=== PATIENT | male | born 1945 | race Caucasian/White ===

== ENCOUNTER 2020-05-22 11:51 | Emergency (ER) | payer OTHER, SELFPAY ==
[2020-05-22 11:58] VITALS: BP 121/84; PULSE 78; RESP 26; TEMP 36.7; BMI 41.7
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
[2020-05-22] MEDS: Diphth,Pertuss(Acell),Tet Vac 0.5 ML Vial IM (12:45)
[2020-05-22 15:44] VITALS: BP 132/66; PULSE 70; RESP 24
[2020-05-22 17:25] VITALS: RESP 18
== END 2020-05-22 17:35 | disposition home or self-care (01) ==
PROVIDERS: Emergency Provider Emergency Medicine
DX: S01.01XA Laceration without foreign body of scalp, initial encounter (principal); S01.81XA Laceration without foreign body of other part of head, initial encounter; V57.5XXA Driver of pick-up truck or van injured in collision with fixed or stationary object in traffic accident, initial encounter; Y93.89 Activity, other specified; Y92.828 Other wilderness area as the place of occurrence of the external cause; Y99.9 Unspecified external cause status; F17.200 Nicotine dependence, unspecified, uncomplicated; Z88.0 Allergy status to penicillin; Z23 Encounter for immunization
CPT/HCPCS: 12001; 70450; 70486; 72125; 90471; 90715; 99284

== ENCOUNTER 2020-07-15 20:28 | Emergency (ER) | payer OTHER, SELFPAY ==
[2020-07-15] VITALS (11 sets, daily range): BP systolic 104–158; BP diastolic 57–79; PULSE 62–95; RESP 15–20; TEMP 36.2–36.5; O2SAT 91–100; BMI 40.1
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
--- NOTE | 2020-07-15 20:36 | EKG12_ITS ---
Test Reason : ALT MENTAL Blood Pressure : / mmHG Vent. Rate : 080 BPM Atrial Rate : 080 BPM P-R Int : 144 ms QRS Dur : 086 ms QT Int : 386 ms P-R-T Axes : 040 000 013 degrees QTc Int : 445 ms Sinus rhythm with Premature atrial complexes Inferior infarct , age undetermined Abnormal ECG Confirmed by LAUREN GROVES, MARIA DOLORES ([id number]), editor & co founder OSCAR GRACE ([id number]) on 07/23/2020 10:12:04 AM Referred By: LEAH Confirmed By:HERBERT AGUILAR MD
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
--- NOTE | 2020-07-15 20:44 | ED.RN ---
NO OLD EKGS IN MUSE
[2020-07-15] MEDS: 0.9% Normal Saline 1,000 ML 1000 ML IV (20:46)
[2020-07-15 20:53] LABS: Absolute Lymphocyte Count 0.91 X10^3/uL (0.83-4.51); Absolute Neutrophil Count 10.9 X10^3/uL (2.0-7.7); Basophil# 0.08 X10^3/uL; Basophil% 0.6 % (0-1); Eosinophil# 0.19 X10^3/uL; Eosinophils% 1.4 % (0-5); Hematocrit 42.3 % (40-54); Hemoglobin 14.5 g/dL (13.0-16.5); Lymphocyte # 0.91 X10^3/ul (4.0); Lymphocyte % 6.8 % (19-41); Mean Corp Hgb Conc 34.3 g/dL (32-36); Mean Corpuscular Hgb 33.3 pg (27.0-32.0); Mean Platelet Vol. 10.9 fl (6.2-12.0); Monocyte# 1.17 X10^3/uL; Monocyte% 8.8 % (0-10); NRBC Flagged by Analyzer 0 % (0-5); Neutrophil # 10.88 X10^3/uL (2.7-7.7); Neutrophil % 81.9 % (47-70); Platelet Count 315 K/mm3 (150-450); RBC Distribution Width CV 12.4 % (11.6-14.6); RBC Distribution Width SD 44.3 fl (35.1-43.9); Red Blood Count 4.36 M/mm3 (4.6-6.2); White Blood Count 13.3 K/mm3 (4.4-11.0)
--- NOTE | 2020-07-15 21:02 | ED.RN ---
18 coude used to insert lopez.
[2020-07-15 21:06] LABS: International Normalized Ratio 1.2; Prothrombin Time (Protime)PT. 14.4 SECONDS (11.7-14.9)
[2020-07-15 21:09] LABS: Mucous, Urine 0 SEEN /hpf (<or=2+); Red Blood Cells-Urine 0 SEEN /hpf (0-5); Squamous Epithelial Cells - UA 0 SEEN /hpf (0-5); White Blood Cells 0 SEEN /hpf (0-5)
[2020-07-15 21:10] LABS: Color, Urine Amber (Yellow); Glucose, Dipstick Normal (Normal); Leukocyte Esterase-Dipstick 25 /ul (Negative); Nitrite-Dipstick Positive (Negative); Occult Blood-Urine 10 /ul (Negative); Protein-Dipstick 30 mg/dl (Negative); Specific Gravity, Urine 1.025 (1.002-1.030); Urine Clarity Clear (Clear); Urine Urobilinogen 8 mg/dl (Normal)
[2020-07-15 21:12] LABS: AST(SGOT) 108 U/L (15-37); Alanine Aminotransfer ALT/SGPT 58 U/L (16-61); Albumin, Serum 3.9 g/dL (3.2-5.0); Alkaline Phosphatase 128 U/L (45-117); Anion Gap 11 (5-15); BUN 46 mg/dL (7-18); BUN/Creat Ratio 44.7 RATIO (10-20); Bilirubin, Direct 0.63 mg/dL (0.00-0.30); Calcium,Total 9.1 mg/dL (8.5-10.1); Chloride 110 mmol/L (98-107); Creatinine, Serum 1.03 mg/dL (0.70-1.30); EST Glomerular Filtration Rate 75 mL/min (>60); Est Glom Filt Rate - Afr Amer 91 mL/min (>60); Estimated Creatinine Clearance 58.83 ml/min; Globulin 3.5 g/dL (2.2-4.2); Glucose 121 mg/dL (74-106); Potassium 3.7 mmol/L (3.5-5.1); Protein, Total 7.4 g/dL (6.4-8.2); Sodium Level 145 mmol/L (136-145)
--- NOTE | 2020-07-15 21:13 | RAD_ITS ---
STUDY: X-RAY CHEST REASON FOR EXAM: Male, 75 years old. Pt was last seen yesterday. Found today on kitchen floor. TECHNIQUE: Single AP portable view of the chest. COMPARISON: March 17, 2015 FINDINGS: The lungs are clear and expanded. There is no demonstrated pleural abnormality. Normal size heart. Normal mediastinum and marianne. Normal visualized pulmonary arteries. Normal visualized aortic arch and descending thoracic aorta. There are diffuse degenerative changes of the visualized thoracic spine. Normal visualized ribs, clavicles, and shoulders. There is no demonstrated abnormality of the visualized soft tissue structures of the upper abdomen. RAD/Chest 1 View (Portable) IMPRESSION: Degenerative changes, as described above. No demonstrated acute cardiopulmonary process. Electronically Signed: Surendra Ratliff MD at 21:59 EST , Service support ,
[2020-07-15 21:15] LABS: Ketone-Dipstick 150 mg/dl (Negative); Urine Bilirubin Dipstick 3 mg/dL (Negative)
[2020-07-15 21:16] LABS: Allen Test Positive; Base Excess -4 mmol/L (-2 to +2); Bicarbonate 20.5 mmol/L (22-26); Blood Gas Specimen Type ART; O2 Delivery Device Room Air; PO2 89 mmHG (75-100); SITE L Radial; SO2 97 % (95-99); Total Carbon Dioxide 22 mmol/L; pCO2 33.5 mmHg (35-45)
[2020-07-15 21:21] LABS: Bacteria 1+ /hpf (None Seen)
[2020-07-15 21:22] LABS: Lactic Acid 2.6 mmol/L (0.4-1.9)
[2020-07-15 21:23] LABS: Amphetamine Urine VISTA NEGATIVE (<1000 ng/mL); Barbiturate Urine VISTA NEGATIVE (< 200 ng/mL); Benzodiazepine Urine VISTA NEGATIVE (< 200 ng/mL); Cocaine Urine VISTA NEGATIVE (< 300 ng/mL); Ecstacy Urine VISTA NEGATIVE (< 500 ng/mL); Methadone Urine VISTA NEGATIVE (< 300 ng/mL); PCP Urine VISTA NEGATIVE (< 25 ng/mL); THC Urine VISTA NEGATIVE (< 50 ng/mL); Vista UDS pH Range 5
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
[2020-07-15 21:27] LABS: CPK Total, Creatine Kinase 1386 U/L (39-308)
--- NOTE | 2020-07-15 21:28 | ED.RN ---
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
[2020-07-15] MEDS: Ceftriaxone 1 GM/50 ML BAG IV (21:30)
[2020-07-15] MEDS: Sodium Chloride 3% 500 ML 999 ML IV (22:03)
--- NOTE | 2020-07-15 22:08 | ED.RN ---
CALL BACK TO RAVINDRA ZAVALA TO ADVISE THAT THIS PT WILL BE TRANSFERRED TO [facility]. UNABLE TO LEAVE A MESSAGE THIS TIME.
[2020-07-15] MEDS: Labetalol 100 MG/20 ML Vial 20 MG IV (22:25)
[2020-07-15 22:36] LABS: Bedside Glucose 114 mg/dL (70-110)
[2020-07-16 00:48] LABS: Reflex Lactate? Y
--- NOTE | 2020-07-16 11:55 | CM.ED ---
SOCIAL WORK Received call from Marion Pina with [facility] for update on patient. For continuity of care, Marion updated patient was transferred to [facility]. Marion to follow up with [place]. Conrad Feliz, MATERIALS SUPERVISOR, FLEET OPERATIONS MANAGER
== END 2020-07-15 23:08 | disposition short-term general hospital (02) ==
LOC: ED 21:22
PROVIDERS: Emergency Provider Emergency Medicine
DX: I62.03 Nontraumatic chronic subdural hemorrhage (principal); N39.0 Urinary tract infection, site not specified
CPT/HCPCS: 36600; 51702; 70450; 71045; 80048; 80076; 80307; 80320; 81001; 82550; 82803; 82962; 83605; 84484; 85025; 85610; 87426; 93005; 96361; 96365; 96375; 99285; A4216; G0480

== ENCOUNTER 2024-09-25 15:23 | Emergency (ER) | payer OTHER, SELFPAY ==
[2024-09-25 15:25] VITALS: BP 145/60; PULSE 60; RESP 16; TEMP 36.8; O2SAT 100
--- NOTE | 2024-09-25 16:27 | CT_ITS ---
EXAM: BRAIN/HEAD WITHOUT CONTRAST CLINICAL HISTORY: Head injury COMPARISON: 07/15/2020 TECHNIQUE: Noncontrast images of the head with multiplanar reconstructions. Dose reduction techniques were used including intermediate exposure control (AEC),iterative reconstruction technique, and/or mA and/or KV dose adjustments based on patient's size. FINDINGS: CT HEAD FINDINGS: No acute intracranial hemorrhage, mass, mass effect, midline shift or pathologic extra-axial fluid collection. Nonspecific periventricular white matter changes are noted. Chronic hypodense crescentic density is noted in the bilateral frontal regions. No hydrocephalus. Age- appropriate cerebral volume and white matter. Visualized paranasal sinuses and mastoid air cells are clear. The calvarium is grossly intact. CT/Brain/Head without Contrast IMPRESSION: 1. No acute intracranial abnormality. 2. Age-appropriate volume loss and remote small vessel ischemic changes. 3. Chronic bifrontal subdural hematomas Reading Location: [facility]
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
--- NOTE | 2024-09-25 17:09 | ED.RN ---
Patient prompted for urine sample and given urinal.
[2024-09-25 17:27] LABS: Absolute Lymphocyte Count 1.06 X10^3/uL (0.83-4.51); Absolute Neutrophil Count 5.1 X10^3/uL (2.0-7.7); Basophil# 0.03 X10^3/uL; Basophil% 0.4 % (0-1); Eosinophil# 0.02 X10^3/uL; Eosinophils% 0.3 % (0-5); Hematocrit 37.1 % (40-54); Hemoglobin 12.4 g/dL (13.0-16.5); Lymphocyte # 1.06 X10^3/ul (0.83-4.51); Lymphocyte % 15.8 % (19-41); Mean Corp Hgb Conc 33.4 g/dL (32-36); Mean Corpuscular Hgb 32.8 pg (27.0-32.0); Mean Corpuscular Volume 98.1 fL (80-94); Mean Platelet Vol. 10.2 fl (6.2-12.0); Monocyte% 7.4 % (0-10); NRBC Flagged by Analyzer 0 % (0-5); Neutrophil # 5.11 X10^3/uL (2.7-7.7); Platelet Count 221 K/mm3 (150-450); RBC Distribution Width SD 43.7 fl (35.1-43.9); Red Blood Count 3.78 M/mm3 (4.6-6.2); White Blood Count 6.7 K/mm3 (4.4-11.0)
[2024-09-25 17:35] LABS: Anion Gap 11 (5-15); BUN 19 mg/dL (4-19); BUN/Creat Ratio 22.9 RATIO (10-20); Calcium 9.1 mg/dL (7.6-11.0); Carbon Dioxide 23.2 mmol/L (22.0-29.0); Chloride 106 mmol/L (96-108); Creatinine, Serum 0.8 mg/dL (0.8-1.3); EST Glomerular Filtration Rate 89 (>60); Glucose 102 mg/dL (70-99); Potassium 4.2 mmol/L (3.3-5.1); Sodium Level 140 mmol/L (133-145)
[2024-09-25 17:54] LABS: Color, Urine Yellow (Yellow); Glucose, Dipstick Normal (Normal); Ketone-Dipstick 50 mg/dl (Negative); Leukocyte Esterase-Dipstick Negative /ul (Negative); Nitrite-Dipstick Negative (Negative); Occult Blood-Urine 10 /ul (Negative); Protein-Dipstick 30 mg/dl (Negative); Specific Gravity, Urine 1.025 (1.002-1.030); Urine Bilirubin Dipstick Negative (Negative); Urine Clarity Clear (Clear); Urine Urobilinogen Normal (Normal)
[2024-09-25 18:11] LABS: Bacteria 1+ /hpf (None Seen); Mucous, Urine 2+ /hpf (<or=2+); Squamous Epithelial Cells - UA 0-5 SEEN /hpf (0-5); White Blood Cells 0-5 SEEN /hpf (0-5)
[2024-09-25 18:12] LABS: Red Blood Cells-Urine 0-5 SEEN /hpf (0-5)
[2024-09-25] MEDS: 0.9% Normal Saline (1000mL) 1,000 ML 999 ML IV (18:27)
[2024-09-25 19:24] VITALS: PULSE 79; RESP 19; O2SAT 95
[2024-09-25 19:43] VITALS: BP 145/60; PULSE 79; RESP 19; TEMP 36.8; O2SAT 95
== END 2024-09-25 19:54 | disposition home or self-care (01) ==
PROVIDERS: Physician Assistant; Emergency Provider Emergency Medicine; Visit Provider Emergency Medicine
DX: S06.0X0D Concussion without loss of consciousness, subsequent encounter (principal); H11.30 Conjunctival hemorrhage, unspecified eye; R40.2410 Glasgow coma scale score 13-15, unspecified time; Y04.8XXD Assault by other bodily force, subsequent encounter
CPT/HCPCS: 70450; 80048; 81001; 85025; 96360; 99282; A4216